=== PATIENT | female | born 1965 | race Caucasian/White ===

== ENCOUNTER 2019-09-08 10:08 | Outpatient (CLI) | payer BC, SELFPAY ==
--- NOTE | ~2019-09-08 | MM_ITS ---
EXAMINATION: MM screening [place] BI w fabienne HISTORY: Screening mammogram TECHNIQUE: Craniocaudal and mediolateral oblique 3-D tomosynthesis images were obtained and synthetic 2-D images were generated. CAD analysis was submitted and interpreted. COMPARISON: 12/05/2013 BREAST PARENCHYMAL COMPOSITION: There are scattered areas of fibroglandular density. FINDINGS: An asymmetry is present in the far posterior third of the right breast just above the nippl e axis on the mediolateral oblique view which is decreased in prominence since the comparison examina tion. A stable low-density mass is present in the posterior third of the outer left breast 10 cm fro m the nipple, consistent with a benign finding. There is been no suspicious interval change in either breast. IMPRESSION: 1. No mammographic evidence of malignancy. 2. Recommend routine screening mammography in one year. BI-RADS Category 2: Benign finding(s). Reviewed, dictated and finalized at location A. OMY TEACHER
== END 2019-09-08 10:09 | disposition home or self-care (01) ==
LOC: ANHIMG 10:19
PROVIDERS: PCP Student in an Organized Health Care Education/Training Program; Visit Provider Student in an Organized Health Care Education/Training Program
DX: Z12.31 Encounter for screening mammogram for malignant neoplasm of breast (principal)
CPT/HCPCS: 77063; 77067

== ENCOUNTER → 2019-10-07 11:22 | Outpatient (CLI) | payer BC, SELFPAY ==
--- NOTE | ~2019-10-07 | US_ITS ---
EXAMINATION: US carotid duplex BI EXAM DATE: 10/07/2019 11:42 INDICATION: Vertigo. TECHNIQUE: Grayscale, color and pulsed Doppler images of the cervical carotid arteries were obtained . The degree of vessel stenosis is placed in one of the following categories: normal, <50% stenosis, 50-69% stenosis, >=70% stenosis but less than near-occlusion, near-occlusion, or occlusion. Note that percent stenosis relative to normal distal artery lumen diameter is indirectly measured from velocit y measurements as described by Henri, et al. Radiology 2003; 229:340-346. There is no prior study fo r comparison. FINDINGS: RIGHT SIDE: Right common carotid artery peak systolic velocity (PSV in cm/s): 76 Right bulb/internal carotid artery peak systolic velocity (PSV in cm/s): 88 Right internal carotid artery end diastolic velocity (EDV in cm/s): 40 Right ICA/CCA peak systolic ratio: 1.2 Right external carotid artery peak systolic velocity (PSV in cm/s): 102 Right vertebral artery antegrade flow: yes There is no focal plaque identified. LEFT SIDE: Left common carotid artery peak systolic velocity (PSV in cm/s): 78 Left bulb/internal carotid artery peak systolic velocity (PSV in cm/s): 85 Left internal carotid artery end diastolic velocity (EDV in cm/s): 34 Left ICA/CCA peak systolic ratio: 1.1 Left external carotid artery peak systolic velocity (PSV in cm/s): 65 Left vertebral artery antegrade flow: yes There is no focal plaque identified. IMPRESSION: 1. Normal right internal carotid artery. 2. Normal left internal carotid artery. > Reviewed, dictated and finalized at location A.
== END ==
PROVIDERS: Visit Provider Student in an Organized Health Care Education/Training Program
DX: R42 Dizziness and giddiness (principal)
CPT/HCPCS: 93880

== ENCOUNTER 2020-09-24 08:54 | Outpatient (CLI) | payer BC, SELFPAY ==
--- NOTE | ~2020-09-24 | MM_ITS ---
EXAMINATION: MM screening [place] BI w fabienne HISTORY: Screening TECHNIQUE: Craniocaudal and mediolateral oblique 3-D tomosynthesis images were obtained and synthetic 2-D images were generated. CAD analysis was submitted and interpreted. COMPARISON: Comparison to multiple prior studies sequentially, with oldest reviewed study dated 09/09. BREAST PARENCHYMAL COMPOSITION: There are scattered areas of fibroglandular density. FINDINGS: There is no evidence of suspicious mass, calcification, or architectural distortion to sugg est malignancy in either breast. There has been no suspicious interval change. IMPRESSION: 1. No mammographic evidence of malignancy. 2. Recommend routine screening mammography in one year. BI-RADS Category 1: Negative Reviewed, dictated and finalized at location A. TH GRADE TEACHER
== END 2020-09-24 08:55 | disposition home or self-care (01) ==
LOC: ANHIMG 08:57
PROVIDERS: PCP Student in an Organized Health Care Education/Training Program; Visit Provider Student in an Organized Health Care Education/Training Program
DX: Z12.31 Encounter for screening mammogram for malignant neoplasm of breast (principal)
CPT/HCPCS: 77063; 77067

== ENCOUNTER 2021-02-03 13:27 | Emergency (ER) | payer BC, SELFPAY ==
--- NOTE | ~2021-02-03 | XR_ITS ---
XR chest 2V DATE: 02/03/2021 15:23 INDICATION: Intermittent weakness and fatigue for 2 months TECHNIQUE: PA and lateral views COMPARISON: None FINDINGS: There is levoscoliosis of the thoracolumbar spine and rotatory dextroscoliosis of the lumba r spine. Normal heart size. No hilar or mediastinal enlargement. No pulmonary infiltrate or consolidation, pleural effusion or pulmonary vascular congestion or pneumo thorax. IMPRESSION: No active cardiopulmonary disease Thoracic and lumbar scoliosis Reviewed, dictated and finalized at location A.
[2021-02-03 13:52] VITALS: BP 166/99; PULSE 75; RESP 18; TEMP 36.8; O2SAT 99
[2021-02-03 15:07] VITALS: BP 141/103; BP 145/85; PULSE 69; PULSE 72
[2021-02-03 15:08] VITALS: BP 155/101; PULSE 74
--- NOTE | 2021-02-03 15:12 | ECG_ITS ---
Measurements Intervals [place] Rate: 65 P: 48 MI: 132 QRS: -11 QRSD: 92 T: 24 QT: 383 QTc: 399 Interpretive Statements SINUS RHYTHM POSSIBLE LEFT ATRIAL ENLARGEMENT INCOMPLETE RIGHT BUNDLE BRANCH BLOCK BORDERLINE T WAVE ABNORMALITY- ANTERIOR LEADS BASELINE ARTIFACT- I, II, III, AVR, AVF, V1, V3-V6 BORDERLINE ECG Electronically Signed On 02-03-2021 15:59:54 CDT by Cas Lopez D.O.
[2021-02-03 15:29] VITALS: BP 105/75; PULSE 65; RESP 16; O2SAT 100
[2021-02-03 15:57] LABS: Basophils Absolute Auto 0.1 K/mm3 (0.0-0.1); Basophils Percent Auto 0.6 % (0.2-1.2); Eosinophils Absolute Auto 0.1 K/mm3 (0-0.3); Eosinophils Percent Auto 1.1 % (0-4.4); Hematocrit 40.9 % (37.0-47.0); Hemoglobin 13.6 g/dL (12.0-15.0); Immature Granulocyte Absolute 0.02 K/mm3 (0.00-0.031); Immature Granulocyte Percent A 0.2 % (0-0.5); Lymphocytes Absolute Auto 1.25 K/mm3 (0.9-3.2); Lymphocytes Percent Auto 14.1 % (18.3-44.2); Mean Corpuscular HGB Conc 33.3 g/dl (32-36); Mean Corpuscular Hemoglobin 32.2 pg (26-34); Mean Corpuscular Volume 96.7 fl (80-100); Mean Platelet Volume 9.2 fl (7.4-10.4); Monocytes Absolute Auto 0.5 K/mm3 (0.1-0.6); Monocytes Percent Auto 5.9 % (2.6-8.5); Neutrophils Absolute Auto 6.9 K/mm3 (1.3-6.7); Neutrophils Percent Auto 78.1 % (45.5-73.1); Platelet Count Result 296 k/mm3 (150-375); Red Blood Count 4.23 M/mm3 (4.2-5.4); Red Cell Distribution Width 11.6 % (11.5-14.5); White Blood Count 8.9 K/mm3 (4.5-10.0)
[2021-02-03 16:08] LABS: Alanine Aminotransferase 13 U/L (4-35); Albumin Level 4.7 g/dL (3.5-5.1); Alkaline Phosphatase 52 U/L (38-126); Anion Gap 8 mmol/L (8-16); Aspartate Amino Transferase 26 U/L (14-36); Bilirubin,Total 0.4 mg/dL (0.2-1.3); Blood Urea Nitrogen 16 mg/dL (7-17); Calcium 9.8 mg/dL (8.4-10.2); Carbon Dioxide 27 mmol/L (22-30); Chloride 103 mmol/L (98-107); Estimated Glomerular Filt Rate > 60; Glucose 95 mg/dL (65-105); Lipase 85 U/L (23-300); Potassium 3.9 mmol/L (3.4-5.0); Sodium 138 mmol/L (137-145)
--- NOTE | 2021-02-03 16:18 | ED.GENADULT ---
HPI - General Adult General Chief complaint: Unspecified Stated complaint: Low BP Time Seen by Provider: 02/03/21 14:56 Source: patient Mode of arrival: ambulatory Limitations: no limitations History of Present Illness HPI narrative: This is a 55 year old female that presents to the ER for generalized weakness ongoing for 6 months. Reports she took her blood pressure this morning and it was in the 80s systolic which concerned her and prompted her to be seen today. Also reports she has had intermittent pain on the right side of her chest for the last 6 months. Reports the pain is sharp and brief. Also reports pain in her flank that started today. Reports increased stress in her life recently. Patient tearful in room. Denies fever, cough, shortness of breath, abdominal pain, vomiting, or dysuria. Related Data Home Medications Medication Instructions Recorded Confirmed hydroxyzine HCl 02/03/21 Allergies Allergy/AdvReac Type Severity Reaction Status Date / Time Sulfa (Sulfonamide Allergy Rash Verified 02/03/21 13:55 Antibiotics) Review of Systems Review of Systems: Narrative: CONSTITUTIONAL: Denies fever ENT: Denies rhinorrhea, congestion, sore throat CARDIOVASCULAR: Reports chest pain. Denies edema. RESPIRATORY: Reports dyspnea. Denies cough GASTROINTESTINAL: Denies abdominal pain, nausea, vomiting GENITOURINARY: Denies dysuria NEUROLOGIC: Reports generalized weakness. All systems reviewed & are unremarkable except as noted in HPI and below PMFSH Past Medical History Medical History (Updated 02/03/21 @ 18:06 by Yvonne Mcclellan PA-C) Normal colonoscopy Surgical History Surgical History History of endoscopy [place] teeth removed Family History Family History Mother Uterine cancer Social History Social History Smoking status: Never smoker Alcohol intake: current Drinks per week: 4 Substance use: never Exam Narrative: Exam Narrative: GENERAL: Well-appearing, well-nourished, and in no acute distress. HEAD: Normocephalic, atraumatic. EYES: PERRLA and EOMI. ENT: Nares clear, no rhinorrhea or epistaxis. Mucous membranes moist. Oropharynx without tonsillar hypertrophy exudate or other lesions. Bilateral TMs pearly quinonez non-bulging NECK: Supple. No adenopathy or masses. CHEST: Clear to auscultation. No respiratory distress. No wheezes rales or rhonchi HEART: Regular rate and rhythm. No murmur heard. Normal peripheral pulses. ABDOMEN: Soft, nontender, nondistended, normal active bowel sounds. EXTREMITIES: Normal range of motion. No edema. SKIN: Warm, dry, no rash. NEURO: No focal deficits. Alert and oriented x3. PSYCH: Anxious Course Vital Signs Vital signs: Vital Signs Temperature 98.2 F 02/03/21 13:52 Pulse Rate 75 02/03/21 13:52 Respiratory Rate 18 02/03/21 13:52 Blood Pressure 166/99 H 02/03/21 13:52 Pulse Oximetry 99 02/03/21 13:52 Temperature 98.2 F 02/03/21 13:52 Pulse Rate 68 02/03/21 16:53 Respiratory Rate 16 02/03/21 16:53 Blood Pressure 119/73 02/03/21 16:53 Pulse Oximetry 99 02/03/21 16:53 Medical Decision Making MDM Narrative Medical decision making narrative: Patient presents the emergency department for generalized weakness and flank pain. She is afebrile and nontoxic-appearing. Her vitals are stable. CBC and metabolic panel without concerning findings. Lipase is normal. UA with evidence of possible urinary tract infection. This will be sent for culture. EKG with nonspecific ST changes. Baseline troponin is negative. D-dimer is not elevated. Chest x-ray is without acute findings. Patient and family updated on case findings. Patient will be treated with antibiotics for urinary tract infection. She is to follow-up with her primary care doctor. She was given jj
[2021-02-03 16:19] LABS: Troponin I < 0.012 ng/mL (0.000-0.034)
[2021-02-03 16:21] LABS: Add Urine Microscopic? YES; Appearance Urine Cloudy (Clear); Bilirubin Urine Negative (Negative); Color Urine Yellow (Yellow); Glucose Urine UA Negative (Negative); Ketones Urine Trace mg/dL (Negative); Leukocyte Esterase Ur 2+ LEU/UL (Negative); Nitrate Urine Negative (Negative); Protein Urine Negative (Negative); RBC Urine 0-2 /hpf (0-2); Specific Grav Ur 1.009 (1.001-1.035); Squamous Epithelial Cell Urine Rare /hpf (Few); Urobilinogen Urine Negative mg/dL (<2.0)
[2021-02-03 16:23] LABS: Blood Urine Negative (Negative)
[2021-02-03 16:37] LABS: Prothrombin Time 12.8 Seconds (11.1-14.7)
[2021-02-03 16:46] LABS: D Dimer 0.24 ug/mL (<0.48)
[2021-02-03 16:53] VITALS: BP 119/73; PULSE 68; RESP 16; O2SAT 99
[2021-02-03 18:07] VITALS: BP 142/87; PULSE 69; RESP 16; O2SAT 100
[2021-02-03] MEDS: FLUCONAZOLE 150 MG TABLET PO (18:21)
== END 2021-02-03 18:24 | disposition home or self-care (01) ==
PROVIDERS: Physician Assistant; Emergency Provider Emergency Medicine; PCP Student in an Organized Health Care Education/Training Program
DX: N12 Tubulo-interstitial nephritis, not specified as acute or chronic (principal); I45.10 Unspecified right bundle-branch block; R94.31 Abnormal electrocardiogram [ECG] [EKG]; M41.9 Scoliosis, unspecified
CPT/HCPCS: 36415; 71046; 80053; 81001; 83690; 84484; 85025; 85380; 85610; 85730; 87077; 87086; 87088; 87186; 93005; 99284; A9270

== ENCOUNTER 2021-10-11 08:42 | Outpatient (CLI) | payer BC, SELFPAY ==
--- NOTE | ~2021-10-11 | MM_ITS ---
EXAMINATION: MM screening [place] BI w fabienne HISTORY: Screening mammogram TECHNIQUE: Craniocaudal and mediolateral oblique 3-D tomosynthesis images were obtained and synthetic 2-D images were generated. CAD analysis was submitted and interpreted. COMPARISON: 09/24/2020, 09/08/2019 bilateral screening mammogram examinations BREAST PARENCHYMAL COMPOSITION: There are scattered areas of fibroglandular density. FINDINGS: There are scattered up to 6 mm nodular masses in the left breast. Diagnostic left mammogram and left breast ultrasound examination are recommended. There is no evidence of suspicious mass, calcification, or architectural distortion to suggest malign shantal in the right breast. There has been no suspicious interval change on the right. IMPRESSION: 1. Scattered up to 6 mm left breast masses 2. Diagnostic left mammogram and left breast ultrasound examination are recommended BI-RADS Category 0: Incomplete: Needs additional imaging evaluation. Reviewed, dictated and finalized at location A. IMPRESSION: 1. Scattered up to 6 mm left breast masses 2. Diagnostic left mammogram and left breast ultrasound examination are recomme nded BI-RADS Category 0: Incomplete: Needs additional imaging evaluation.
== END 2021-10-11 08:43 | disposition home or self-care (01) ==
LOC: ANHIMG 08:44
PROVIDERS: PCP Student in an Organized Health Care Education/Training Program; Visit Provider Student in an Organized Health Care Education/Training Program
DX: Z12.31 Encounter for screening mammogram for malignant neoplasm of breast (principal); R92.8 Other abnormal and inconclusive findings on diagnostic imaging of breast
CPT/HCPCS: 77063; 77067

== ENCOUNTER 2021-10-24 12:16 | Outpatient (CLI) | payer BC, SELFPAY ==
--- NOTE | ~2021-10-24 | MMUS_ITS ---
EXAMINATION: MM diagnostic [place] LT w fabienne, US breast LT complete HISTORY: Follow-up left breast asymmetries TECHNIQUE: Additional 3-D tomosynthesis images of the left breast were performed and synthetic 2-D im ages were generated. CAD analysis was submitted and interpreted. High resolution complete left breast ultrasound was performed. COMPARISON: Comparison to multiple prior studies sequentially, with oldest reviewed study dated 09/09. BREAST PARENCHYMAL COMPOSITION: Breast composed of scattered areas of fibroglandular density. FINDINGS: MAMMOGRAPHIC FINDINGS: There are small masses in the mid outer aspect of the left breast posteriorly at approximately 3:00 a nd also the central aspect of the left breast, middle third. ULTRASOUND: Complete US of all 4 quadrants of the left breast and retroareolar region was reviewed. Normal hetero geneous echotexture. No sonographic abnormalities are identified corresponding to the abnormality see n on mammography. IMPRESSION: 1. Probable benign left breast masses without sonographic correlate. 2. Recommend 6 month follow-up diagnostic left mammogram with possible ultrasound BI-RADS category 3, probably benign findings. Reviewed, dictated and finalized at location A. IMPRESSION: 1. Probable benign left breast masses without sonographic correlate. 2. Recommend 6 month follow-up diagnostic left mammogram with possible ultrasou nd BI-RADS category 3, probably benign findings.
== END 2021-10-24 12:17 | disposition home or self-care (01) ==
LOC: ANHIMG 12:21
PROVIDERS: PCP Student in an Organized Health Care Education/Training Program; Visit Provider Student in an Organized Health Care Education/Training Program
DX: N63.0 Unspecified lump in unspecified breast (principal); R92.8 Other abnormal and inconclusive findings on diagnostic imaging of breast
CPT/HCPCS: 76641; 77061; 77065; G0279

== ENCOUNTER 2022-06-01 11:59 | Outpatient (CLI) | payer BC, SELFPAY ==
--- NOTE | ~2022-06-01 | MMUS_ITS ---
EXAMINATION: MM diagnostic [place] LT w fabienne, US breast LT limited HISTORY: Probable benign left breast masses without sonographic correlate reported on 10/24/2021 diagno stic left mammogram and complete left breast ultrasound examination TECHNIQUE: Full field and spot 3-D tomosynthesis images of the left breast were performed and synthet ic 2-D images were generated. CAD analysis was submitted and interpreted. High resolution upper outer and lower-outer quadrant left breast ultrasound was performed. COMPARISON: 10/2021 diagnostic left mammogram and complete left breast ultrasound 10/11/2021, 09/24/2020, 09/08/2019 bilateral screening mammogram examinations FINDINGS: MAMMOGRAPHIC FINDINGS: 4 mm low-density circumscribed opacity is noted deep in the mid outer left breast. There is a likely fatty hilus, suggesting this is a benign appearing small intramammary lymph node. Otherwise no suspicious mass, architectural distortion, malignant calcification, skin thickening or r etraction is evident. ULTRASOUND: No suspicious mass or shadowing is detected in the lateral half of the left breast. IMPRESSION: 1. Probable benign intramammary lymph node, posterior outer mid left breast 2. 6 month diagnostic left mammogram follow-up is recommended, with ultrasound if required BI-RADS category 3, probably benign findings. Reviewed, dictated and finalized at location A. ORATE TRAFFIC MANAGER IMPRESSION: 1. Probable benign intramammary lymph node, posterior outer mid left breast 2. 6 month diagnostic left mammogram follow-up is recommended, with ultrasound if required BI-RADS category 3, probably benign findings.
== END 2022-06-01 12:00 | disposition home or self-care (01) ==
PROVIDERS: PCP Student in an Organized Health Care Education/Training Program; Visit Provider Student in an Organized Health Care Education/Training Program
DX: R92.8 Other abnormal and inconclusive findings on diagnostic imaging of breast (principal)
CPT/HCPCS: 76642; 77061; 77065; G0279

== ENCOUNTER 2023-03-08 12:52 | Outpatient (CLI) | payer BC, SELFPAY ==
--- NOTE | ~2023-03-08 | MMUS_ITS ---
EXAMINATION: MM diagnostic [place] BI w fabienne, US breast LT complete HISTORY: Follow-up breast masses TECHNIQUE: Additional 3-D tomosynthesis images of the breasts were performed and synthetic 2-D images were generated. Complete left breast ultrasound. CAD analysis was submitted and interpreted. COMPARISON: Comparison to multiple prior studies sequentially, with oldest reviewed study dated 12/05. BREAST PARENCHYMAL COMPOSITION: Breast composed of scattered areas of fibroglandular density FINDINGS: The right breast is stable without evidence for malignancy. There are enlarging masses in t he lower outer quadrant of the left breast in the central aspect of the left breast. The left breast ultrasound including all 4 quadrants in the subareolar location: Normal heterogeneous echotexture without focal solid or cystic mass. IMPRESSION: 1. Enlarging left breast masses without sonographic correlate. 2. Recommend correlation with MRI of the breasts with contrast. BI-RADS Category 0: Incomplete: Needs additional imaging evaluation. Reviewed, dictated and finalized at location A. IMPRESSION: 1. Enlarging left breast masses without sonographic correlate. 2. Recommend correlation with MRI of the breasts with contrast. BI-RADS Category 0: Incomplete: Needs additional imaging evaluation.
== END 2023-03-08 12:53 | disposition home or self-care (01) ==
LOC: ANHIMG 12:54
PROVIDERS: PCP Student in an Organized Health Care Education/Training Program; Visit Provider Student in an Organized Health Care Education/Training Program
DX: R92.8 Other abnormal and inconclusive findings on diagnostic imaging of breast (principal)
CPT/HCPCS: 76641; 77062; 77066; G0279

== ENCOUNTER 2023-04-27 09:38 | Outpatient (CLI) | payer BC, SELFPAY ==
--- NOTE | ~2023-04-27 | MR_ITS ---
EXAMINATION: MR breast BI wo/w con INDICATION: Indeterminate mammographically detected left breast masses TECHNIQUE: Axial VIBRANT pre and dynamic post contrast, Sagittal VIBRANT post contrast, Axial T2 STIR ASSET COMPARISON: No prior MRI is available for comparison. Comparison is made to prior mammograms and ultr asounds dated 03/08/2023, 06/01/2022, 10/24/2021, 10/11/2021, 09/24/2020, and 09/08/2019 CONTRAST: Multihance, 9 cc BREAST COMPOSITION: Scattered fibroglandular tissue FINDINGS: RIGHT BREAST: There is minimal background parenchymal enhancement. No abnormal enhancement is present after contrast administration. No pathologically enlarged axillary or internal mammary lymph nodes a re identified. LEFT BREAST: There is minimal background parenchymal enhancement. There is a 6 mm cyst in the posteri or third of the outer breast at the 4:00 location, 9 cm from the nipple corresponding to the mammogra phic finding in the outer breast. No MRI correlate is identified for the asymmetry of the inner breas t seen on screening mammogram. This is mammographically stable compared to multiple examinations end consistent with a benign finding. No abnormal enhancement is present after contrast administration. N o pathologically enlarged axillary or internal mammary lymph nodes are identified. IMPRESSION: 1. No suspicious MRI findings. Routine annual screening mammography is recommended. BI-RADS Category 2: Benign finding(s). Reviewed, dictated and finalized at location A. IMPRESSION: 1. No suspicious MRI findings. Routine annual screening mammography is recommen ded. BI-RADS Category 2: Benign finding(s).
== END 2023-04-27 09:39 | disposition home or self-care (01) ==
PROVIDERS: PCP Student in an Organized Health Care Education/Training Program; Visit Provider Student in an Organized Health Care Education/Training Program
DX: R92.8 Other abnormal and inconclusive findings on diagnostic imaging of breast (principal); R93.89 Abnormal findings on diagnostic imaging of other specified body structures
CPT/HCPCS: 77049; A9577; C8908